=== PATIENT | female | born 1995 | race Caucasian/White ===

== ENCOUNTER 2019-07-09 19:18 | Emergency (ER) | payer OTHER ==
[~2019-07-09] VITALS: Ht 165.1 cm; Wt 72.6 kg
[2019-07-09 19:32] VITALS: BP_SYST 141
--- NOTE | 2019-07-09 19:39 | NUR ---
Pt placed to ER waiting room in stable condition. Urine specimen cup provided.
--- NOTE | 2019-07-09 19:58 | NUR ---
Pt to lab.
--- NOTE | 2019-07-10 02:10 | NUR ---
Pt placed to ER bed 03. Report given to MADY Escoto and Dr. Calabrese.
--- NOTE | 2019-07-10 02:20 | NUR ---
AWAKE, ALERT, ORIENTED X 3. IN NO APPARENT DISTRESS. STATES SHE HAD SOME VAGINAL BLEEDING.
--- NOTE | 2019-07-10 02:30 | NUR ---
ER at bedside examining patient.
[2019-07-10 02:40] VITALS: BP_SYST 130
--- NOTE | 2019-07-10 02:40 | NUR ---
Patient given written and verbal discharge instructions and verbalizes understanding. ER DR ANAY MACARIO discussed with patient the results and treatment provided. Patient in stable condition. ID arm band removed. Patient educated on pain management and to follow up with PMD. Pain Scale . Opportunity for questions provided and answered. Medication side effect fact sheet provided.
== END 2019-07-10 02:40 | disposition home or self-care (01) ==
LOC: SED 19:18
DX: O20.0 Threatened abortion (principal); Z3A.01 Less than 8 weeks gestation of pregnancy
CPT/HCPCS: 36415; 76801; 76817; 84702-TC; 99284